=== PATIENT | female | born 1970 | race Caucasian/White ===

== ENCOUNTER → 2020-09-20 | Outpatient (CLI) | payer BC ==
[2020-09-20 13:41] VITALS: BP 135/90; RESP 18; TEMP 98.4; BMI 30.8
--- NOTE | 2020-09-21 10:15 | P.HPBAR ---
Bariatric H&P - History & Physicial H&P Date: 09/20/20 History & Physicial: Visit/CC: initial visit Patient initial contact: Initial weight: Initial weight in pounds: Height: 5 ft 1 in Initial BMI: Last weight: Current weight: 73.936 kg Current weight in pounds: 163.00 Current BMI: 30.8 [place] body weight (based on NIH guidelines): 47.627 kg Excess body weight loss: The patient is a 50 year-old F who presents for Bariatric Assessment. Patient presents today for initial consultation. Patient has struggled with obesity most of her life. She is requesting a lap band. Past Medical History Past Medical History: Thyroid Disorder History of Any Multi-Drug Resistant Organisms: None Reported Past Surgical History: Section Additional Past Surgical History / Comment(s): c section x 3 Past Anesthesia/Blood Transfusion Reactions: No Reported Reaction Past Psychological History: No Psychological Hx Reported Smoking Status: Light tobacco smoker Past Alcohol Use History: None Reported Past Drug Use History: None Reported Surgical - Exam Vital Signs Temp Resp BP 98.4 F 18 135/90 09/20/20 13:23 09/20/20 13:23 09/20/20 13:23 - General well developed, well nourished - Eyes PERRL - ENT normal pinna - Neck no masses - Respiratory normal expansion - Cardiovascular Rhythm: regular - Abdomen Abdomen: soft, non tender Bariatric Assessment & Plan Plan: Obesity. Patient's weight currently is not adequate for vaginal surgery. The patient will need to weigh 177 pounds with a BMI of 35 prior to surgery. The patient will follow-up as needed. Bariatric Checklist Checklist: Plan: Checklist: EGD: 1. Hiatal hernia: 2. H. Pylori: HgbA1c: Vitamin D: Smoking: Primary care physician referral: no PCP Psychiatry clearance: Cardiology clearance: Sleep study: Diet journal: VTE risk score: VTE risk level: Rehab needs at discharge:
== END | disposition home or self-care (01) ==
LOC: BARWHC3 12:58
PROVIDERS: ATTEND Surgery
DX: E66.9 Obesity, unspecified (principal); Z68.35 Body mass index [BMI] 35.0-35.9, adult; Z98.890 Other specified postprocedural states
CPT/HCPCS: 99201; 99202

== ENCOUNTER → 2020-11-29 | Outpatient (CLI) | payer BC ==
[2020-11-29 13:23] VITALS: BP 144/93; PULSE 115; RESP 18; TEMP 97.7; BMI 34.9
[2020-11-29 15:03] LABS: HCT 39.7 % (34.0-46.0); HGB 13.5 gm/dL (11.4-16.0); MCH 27.9 pg (25.0-35.0); MCV 82.2 fL (80.0-100.0); Platelet Count 345 k/uL (150-450); RBC 4.83 m/uL (3.80-5.40); RDW 13.2 % (11.5-15.5); WBC 6.7 k/uL (3.8-10.6)
--- NOTE | 2020-11-29 16:28 | P.HPBAR ---
Bariatric H&P - History & Physicial H&P Date: 11/29/20 History & Physicial: Visit/CC: follow up Patient initial contact: Initial weight: Initial weight in pounds: Height: 5 ft Initial BMI: Last weight: Current weight: 82.554 kg Current weight in pounds: 182.00 Current BMI: 34.9 [place] body weight (based on NIH guidelines): 46.493 kg Excess body weight loss: The patient is a 50 year-old F who presents for Bariatric Assessment. Patient presents today for initial consultation. She is requesting LAP-BAND surgery. Her BMI is 36. She has some local related to morbid obesity.. 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 She is also had some GERD symptoms. Past Medical History Past Medical History: Thyroid Disorder History of Any Multi-Drug Resistant Organisms: None Reported Past Surgical History: Section Additional Past Surgical History / Comment(s): c section x 3 Past Anesthesia/Blood Transfusion Reactions: No Reported Reaction Past Psychological History: No Psychological Hx Reported Smoking Status: Light tobacco smoker Past Alcohol Use History: None Reported Past Drug Use History: None Reported Surgical - Exam Vital Signs Temp Pulse Resp BP 97.7 F 115 H 18 144/93 11/29/20 13:07 11/29/20 13:07 11/29/20 13:07 11/29/20 13:07 - General well developed, well nourished, no distress - Eyes PERRL - ENT normal pinna - Neck no masses - Respiratory normal expansion - Cardiovascular Rhythm: regular - Abdomen Abdomen: soft, non tender Results - Labs 11/29/20 14:30 Bariatric Assessment & Plan Plan: Morbid obesity, BMI 36. Patient will undergo EGD. She'll follow-up in 4 weeks. Bariatric Checklist Checklist: Plan: Checklist: EGD: 1. Hiatal hernia: 2. H. Pylori: HgbA1c: Vitamin D: Smoking: Primary care physician referral: no PCP Psychiatry clearance: Cardiology clearance: Sleep study: Diet journal: VTE risk score: VTE risk level: Rehab needs at discharge:
[2020-11-29 19:23] LABS: African American GFR (CKD) 124.9 (60.0-200.0); Albumin 4.7 g/dL (3.80-4.90); Albumin/Globulin Ratio 1.74 (1.60-3.17); Anion Gap 7.6 mmol/L (4.00-12.00); BUN/Creat Ratio 16.67 Ratio (12.00-20.00); Calcium 9.3 mg/dL (8.7-10.3); Carbon Dioxide 29.4 mmol/L (21.6-31.8); Globulin 2.7 g/dL (1.6-3.3); Non-African American GFR(CKD) 107.8 (60.0-200.0); Total Bilirubin 0.4 mg/dL (0.3-1.2); Total Protein 7.4 g/dL (6.2-8.2)
[2020-11-29 19:33] LABS: Folate, Serum 13.5 ng/mL
[2020-11-29 19:46] LABS: Hemoglobin A1C 5.3 % (4.0-6.0)
== END ==
LOC: BARWHC3 13:04
PROVIDERS: ATTEND Surgery
DX: E66.01 Morbid (severe) obesity due to excess calories (principal); Z68.36 Body mass index [BMI] 36.0-36.9, adult; F17.200 Nicotine dependence, unspecified, uncomplicated
CPT/HCPCS: 80053; 82306; 82607; 82746; 83036; 84425; 85027; 93005; 99211